=== PATIENT | male | born 1990 ===

== ENCOUNTER 2020-09-07 14:19 | Emergency (ER) | payer SELFPAY ==
[~2020-09-07] VITALS: Ht 170.2 cm; Wt 77.3 kg
[2020-09-07 16:15] VITALS: BP 118/64; PULSE 80; TEMP 97.8
== END 2020-09-07 16:10 | disposition home or self-care (01) ==
LOC: COL.ER 14:19
DX: S61.215A Laceration without foreign body of left ring finger without damage to nail, initial encounter (principal); F17.210 Nicotine dependence, cigarettes, uncomplicated; W27.8XXA Contact with other nonpowered hand tool, initial encounter